=== PATIENT | female | born 1940 | race Caucasian/White ===

== ENCOUNTER → 2016-12-20 | Outpatient (REF) ==
[~2016-12-20] MED LIST: ASPIRIN 81M81 MG/TA2 PO; CALCIUM 600600 M1 PO; CENTRUM SILVER1 TA1 PO; VITAMIN D2000 I1 PO; ZOCOR 40MG40 MG PO; ZYRTEC 10MG10 MG PO
== END ==
LOC: ZLAB.WCH 12:24
DX: Z01.89 Encounter for other specified special examinations (principal)

== ENCOUNTER → 2018-09-22 | Outpatient (REF) | LOC: ZLAB.WCH 15:56 | DX: Z01.89 Encounter for other specified special examinations (principal) ==

== ENCOUNTER 2021-10-15 08:08 | Inpatient (IN) | payer MEDICARE, OTHER ==
[2021-10-15] VITALS (11 sets, daily range): BP systolic 107–140; BP diastolic 41–55; PULSE 78–89; TEMP 98.6
[~2021-10-15] VITALS: Ht 155 cm; Wt 63.0 kg
[2021-10-15 08:40] LABS: BASO # 0.1 K/mm3 (0.0-0.2); BASO % 0.8 % (0.0-2.0); EOS # 0.3 K/mm3 (0.0-0.7); EOS % 4.5 % (0.0-4.0); GRAN # 3.9 K/mm3 (1.4-6.5); GRAN % 61.8 % (42.2-75.2); HEMOGLOBIN 12.5 g/dl (12.5-16.0); LYMPH # 1.6 K/mm3 (1.2-3.4); LYMPH % 24.9 % (20.0-51.0); MEAN CELL VOLUME 91 fl (80.0-100.0); MEAN CORPUSCULAR HEMOGLOBIN 31 pg (27-31); MEAN CORPUSCULAR HGB CONC 34 g/dl (33.0-37.0); MEAN PLATELET VOLUME 8.6 fl (7.4-10.4); MONO # 0.5 K/mm3 (0.1-0.6); MONO % 7.7 % (1.7-9.3); PLATELET COUNT 295 K/mm3 (130-400); RED BLOOD COUNT 4.03 M/mm3 (4.10-5.30); REDCELL DISTRIBUTION WIDTH-CV 11.8 % (11.5-14.5)
[2021-10-15 08:46] LABS: HEMATOCRIT 36.6 % (37.0-47.0)
[2021-10-15 08:53] LABS: ALANINE AMINOTRANSFERASE 13 U/L (0-55); ALBUMIN 3.8 gm/dL (3.4-4.8); ALKALINE PHOSPHATASE 65 U/L (40-150); ANION GAP 9 mmol/L (7-16); AST,SGOT 16 U/L (5-34); BILIRUBIN,TOTAL 0.6 mg/dL (0.2-1.2); BLOOD UREA NITROGEN 12 mg/dL (10-20); CALCIUM 8.8 mg/dL (8.4-10.2); CARBON DIOXIDE 23 mmol/L (23-31); CHLORIDE 105 mmol/L (98-107); CREATININE, serum 0.81 mg/dL (0.57-1.11); GLUCOSE 120 mg/dL (70-99); POTASSIUM 4.1 mmol/L (3.5-4.5); SODIUM 137 mmol/L (136-145); TOTAL PROTEIN 6.4 gm/dL (6.2-8.1)
[2021-10-15 09:03] LABS: TROPONIN-I < 0.010 ng/mL (0.00-0.033)
[2021-10-15] MEDS ORDERED: PRINIVIL20 MG PO (10:28)
[2021-10-15] MEDS ORDERED: ZOCOR 20MG20 MG PO (10:31)
--- NOTE | 2021-10-15 11:52 | NUR ---
Pt just arrived to the floor from ED. She is alert and oriented with pain complaints of 2-3/10 at rest. Pts is at bedside. Oriented her to her room and plan for the day. Pt stated that she does have urge to void, discussed her having a catheter due to the increased amount of pain with movement.
[2021-10-15 12:39] LABS: PROTHROMBIN TIME 11.1 SECONDS (9.7-12.8)
--- NOTE | 2021-10-15 12:39 | NUR ---
Pt does not have an IS at this time
[2021-10-15 12:43] LABS: MUCOUS Present (NOT PRESENT); PH 7 (5-8); SQUAMOUS EPITHELIAL None Seen /hpf (0-10); URINE APPEARANCE Hazy (CLEAR/HAZY); URINE BACTERIA None Seen /hpf (NONE SEEN); URINE BILIRUBIN Negative (NEGATIVE); URINE BLOOD Negative (NEGATIVE); URINE COLOR Yellow (YELLOW); URINE GLUCOSE Negative (NEGATIVE); URINE KETONE Negative (NEGATIVE); URINE LEUKOCYTE ESTERASE Negative (NEGATIVE); URINE NITRATE Negative (NEGATIVE); URINE PROTEIN(semi-quant) Negative (NEGATIVE); URINE UROBILINOGEN Negative (NEGATIVE); URINE WBC 0-2 /hpf (0-2)
[2021-10-15 12:54] LABS: COLLECTION METHOD CATHETER
--- NOTE | 2021-10-15 15:35 | NUR ---
Pt off the floor for surgery
--- NOTE | 2021-10-15 18:28 | NUR ---
Pt just arrived back to the floor from [facility]. She is alert and oriented, although drowsy. No pain complaints at this time. She does have 3 incisions with gauze/tegaderm to her right hip/thigh. Educated her on room service, ordered something for dinner for her. SCDs/Teds on bilaterally, marti to dependent drainage. IV to right wrist with fluids infusing.
--- NOTE | 2021-10-15 22:15 | NUR ---
Received report from day shift. Patient alert and oriented x4. VSS. Patient post op right hip fracture. ICE to surgical site. Thornton to DD with good output. Patient tolerating liquids well. Patient denies pain. Patient tolerated PM meal well. Will advance diet as tolerated. Assessment performed. Patient resting in bed with call light near.
[2021-10-16] VITALS (7 sets, daily range): BP systolic 111–140; BP diastolic 48–83; PULSE 74–93; TEMP 97.8–99.2
--- NOTE | 2021-10-16 00:34 | NUR ---
Tele notified of patient having brief period of possible afib rvr running in 120-200 for a period of 12-14 seconds. Will continue to monitor.
--- NOTE | 2021-10-16 08:00 | NUR ---
Patient working w/ PT upon entering the room, transferred from bed to recliner. Patient given morning medications w/ breakfast. Patient denies any concerns at this time and appears to be doing well. Patient has call light w/in reach and has been encouraged to call if any needs arise.
--- NOTE | 2021-10-16 09:40 | NUR ---
child abuse worker met with patient to discuss discharge plan. Patient states that she lives at home with her Herman ([phone]) in [place]. Patient reports that prior to this admission she has been fully independent with her ADL's and does not utilize any DME to assist with mobility. Patient has no home oxygen needs. PCP is Dr. Knott and she utilizes [place] [facility] for short term medications and [facility] for care home medications. Patient reports that she does have a [facility]-[facility] established listing her as her agent. Spoke with the patient about the need for post acute rehab. Patient states that she is a passport member at [facility]. This is her preferred choice. Asked the patient if she has a second choice preferrence, which she does not. [facility] about [facility]. Patient verbalized her agreement to placing a referral with them. Referrals faxed to [facility] & [facility]. Discharge plan: SNF vs. [facility]
--- NOTE | 2021-10-16 10:16 | NUR ---
Initial visit; Patient thanked Exhibit Artist for looking in on him and keeping him in Exhibit Artist's prayers.
--- NOTE | 2021-10-16 17:13 | NUR ---
Patient has done well today and reports mild pain. Scheduled tylenol has helped w/ this pain. Patient has declined any stronger pain medications. Patient currently resting in bed.
--- NOTE | 2021-10-17 01:29 | NUR ---
PATIENT ALERT AND ORIENTED. HS MEDS TAKEN SLOWLY OVERTIME NOT TO UPSET PATIENTS STOMACH. ALSO HAD SOME CRACKERS TO HELP. DISCUSSED WITH PATIENT MOSHER REMOVAL, WHICH WILL BE DONE IN AM, PATIENT IS AGREEABLE. SCHEDULED TYLENOL FOR PAIN CONTROL. X3 HIP SITES CDI WITH GAUZE AND TEGADERM. AMBULATED 1 ASSIST WITH WALKER TO BATHROOM AND HAD LARGE FORMED STOOL.
[2021-10-17 03:55] VITALS: BP 128/52; PULSE 87; TEMP 98.3
[2021-10-17 08:24] VITALS: BP 136/57; PULSE 90; TEMP 98.8
[2021-10-17 08:37] LABS: BASO % 0.5 % (0.0-2.0); EOS # 0.2 K/mm3 (0.0-0.7); GRAN # 5.8 K/mm3 (1.4-6.5); GRAN % 71.6 % (42.2-75.2); LYMPH # 1.4 K/mm3 (1.2-3.4); MEAN CELL VOLUME 93 fl (80.0-100.0); MEAN CORPUSCULAR HGB CONC 34 g/dl (33.0-37.0); MEAN PLATELET VOLUME 8.8 fl (7.4-10.4); MONO # 0.6 K/mm3 (0.1-0.6); MONO % 7.5 % (1.7-9.3); PLATELET COUNT 231 K/mm3 (130-400)
[2021-10-17 08:52] LABS: CALCIUM 8.3 mg/dL (8.4-10.2); CREATININE, serum 0.7 mg/dL (0.57-1.11); POTASSIUM 3.9 mmol/L (3.5-4.5)
[2021-10-17 08:59] LABS: HEMATOCRIT 27.8 % (37.0-47.0); HEMOGLOBIN 9.4 g/dl (12.5-16.0); MEAN CORPUSCULAR HEMOGLOBIN 31 pg (27-31)
--- NOTE | 2021-10-17 09:00 | NUR ---
Pt doing well this morning, stated that she had a good night. Pt planning on going to [place] tomorrow. Pt reports that her pain is tolerable. Reports that it does increase with movement, but the tylenol being given is working fine for her. Pt aware of how to order meals. No other needs verbalized, call light within reach
--- NOTE | 2021-10-17 09:19 | NUR ---
Follow-up visit; Patient thanked Allergy Nurse for looking in on her again this morning, wishing her God's blessings and keeping her in her prayers.
--- NOTE | 2021-10-17 11:52 | NUR ---
ELENI spoke with Meng at [facility] this morning who states that they do not currently have a bed. She states that two of their LTC residents got admitted to the hospital last night and that they would be in line before the patient. ELENI spoke with Samantha at [facility] who states that the patient has been accepted there for an admission tomorrow. Met with patient to notify of the above. Patient verbalizes her agreement with the plan and states that her will be happy that he doesn't have to "fight the traffic". ELENI notified patients RN of the above. Notified Samantha that the patient is in agreement with the discharge plan. Discharge plan: [facility] 10/18
[2021-10-17 12:00] VITALS: BP 134/48; PULSE 90; TEMP 98.5
--- NOTE | 2021-10-17 12:46 | NUR ---
Pt continues to do well with minimal pain complaints. Pt has been sitting up in the chair since mid morning. Voiding without difficulty since marti cathter was removed. Discussed pt ordering some lunch. No other needs at this time, call light within reach
--- NOTE | 2021-10-17 15:51 | NUR ---
Pt back in bed, doing well with minimal complaints or needs.
[2021-10-17 16:00] VITALS: BP 126/73; PULSE 95; TEMP 99
--- NOTE | 2021-10-17 18:31 | NUR ---
Patientkush assisted back to bed from the bathroom with 1xassist gait belt and walker. A&O. VSS. IV CDI. Incision rt hip CDI. Denies pain and discomfort. James hose bilateral legs. Call light within reach. Bed alarm on
[2021-10-17 19:47] VITALS: BP 121/60; PULSE 101; TEMP 99.1
[2021-10-17 23:49] VITALS: BP 142/60; PULSE 91; TEMP 99.1
--- NOTE | 2021-10-18 02:02 | NUR ---
Received report from day shift. Patient alert and oriented x4. VSS. Patient here for right hip fracture. Patient denies pain at this time. Assessment performed. 3 sites CDI. PM meds administered. Call light within reach.
[2021-10-18 03:14] VITALS: BP 130/62; PULSE 86; TEMP 99
[2021-10-18 05:55] LABS: BASO % 0.5 % (0.0-2.0); EOS # 0.4 K/mm3 (0.0-0.7); EOS % 5.2 % (0.0-4.0); GRAN # 5.3 K/mm3 (1.4-6.5); GRAN % 66.2 % (42.2-75.2); LYMPH # 1.4 K/mm3 (1.2-3.4); MEAN CELL VOLUME 94 fl (80.0-100.0); MEAN CORPUSCULAR HGB CONC 33 g/dl (33.0-37.0); MEAN PLATELET VOLUME 9.1 fl (7.4-10.4); MONO # 0.9 K/mm3 (0.1-0.6); MONO % 10.6 % (1.7-9.3); PLATELET COUNT 226 K/mm3 (130-400); RED BLOOD COUNT 2.97 M/mm3 (4.10-5.30); REDCELL DISTRIBUTION WIDTH-CV 12.2 % (11.5-14.5)
[2021-10-18 06:09] LABS: HEMATOCRIT 27.9 % (37.0-47.0); HEMOGLOBIN 9.2 g/dl (12.5-16.0); MEAN CORPUSCULAR HEMOGLOBIN 31 pg (27-31)
[2021-10-18 06:15] LABS: CALCIUM 8.3 mg/dL (8.4-10.2); CREATININE, serum 0.67 mg/dL (0.57-1.11)
[2021-10-18 07:00] VITALS: BP 141/56; PULSE 90; TEMP 98.1
[2021-10-18] MEDS ORDERED: ASPI325T6 PO (08:54)
[2021-10-18] MEDS ORDERED: OSCAL 500 TAB500 MG PO (08:55)
[2021-10-18] MEDS ORDERED: TYLENOL 500MG500 MG PO (08:55)
[2021-10-18] MEDS ORDERED: VITAMIN C500 MG PO (08:56)
[2021-10-18] MEDS ORDERED: PEPCID 20MG TAB20 MG PO (08:56)
[2021-10-18] MEDS ORDERED: FERROUSAL325 MG PO (08:57)
--- NOTE | 2021-10-18 08:58 | NUR ---
HOSPITALIST TEAM ROUNDING. PATIENT WILL DISCHARGE TO [facility] TODAY.
--- NOTE | 2021-10-18 10:10 | NUR ---
PATIENT'S HERE AND PATIENT IS READY FOR DISCHARGE. INFO PACKET GIVEN TO TO GIVE TO NURSING STAFF. PATIENT IS DRESSED, PACKED AND ASSISTED VIA WC TO PERSONAL VEHICLE. TELE DC'D. RIGHT WRIST IV SITE DC'D AND COVERED WITH GAUZE & COBAN. CALLED REPORT TO AURA SHER. PATIENT DISCHARGED.
--- NOTE | 2021-10-18 10:34 | NUR ---
KATIE Singh with [facility] states that they are good to take the patient today and would like an earlier arrival time. Kristina notified and asked to round on patient first. ELENI contacted patients Herman this morning post rounding. Informed him that the patient is good to go to [facility] today. Herman is in agreement of transporting the patient and states that he would be here in about an hour to take the patient. Patient provided the MCR.IM form. Education provided and the patient verbalized her agreement with discharge plan of going to [facility] today. Signed original placed in the patients chart and copy provided back to the patient. Nurse to Nurse phone number provided to the patients RN to complete report. Discharge plan: [facility]
== END 2021-10-18 10:10 | disposition swing bed (61) | DRG 481 ==
LOC: COL.ER 08:08 → SURG 10:11
PROVIDERS: Emergency Medicine; Orthopaedic Surgery; Physician Assistant; ADMIT Internal Medicine
PROC: 0QS636Z Reposition Right Upper Femur with Intramedullary Internal Fixation Device, Percutaneous Approach (ICD-10-PCS; principal; 2021-10-15 15:30)
DX: S72.141A Displaced intertrochanteric fracture of right femur, initial encounter for closed fracture (principal); E87.1 Hypo-osmolality and hyponatremia; I10 Essential (primary) hypertension; E78.00 Pure hypercholesterolemia, unspecified; K21.9 Gastro-esophageal reflux disease without esophagitis; H81.10 Benign paroxysmal vertigo, unspecified ear; D64.9 Anemia, unspecified; W18.30XA Fall on same level, unspecified, initial encounter; Y93.89 Activity, other specified; Y92.9 Unspecified place or not applicable; Z79.82 Long term (current) use of aspirin
CPT/HCPCS: 99223-AI; 99232-AI; 99239; A4314; A9284; C1713; C1769; J0690; J2270; J2405; J2704; J3010